=== PATIENT | male | born 1955 | race Caucasian/White ===

== ENCOUNTER 2017-02-10 16:47 | Emergency (ER) | payer OTHER ==
[~2017-02-10] VITALS: Ht 172.7 cm; Wt 100.9 kg
[2017-02-10] MEDS ORDERED: PERCOCET 5/31 TABLET PO (18:51)
[2017-02-10 19:05] VITALS: BP 141/82
== END 2017-02-10 19:08 | disposition home or self-care (01) ==
LOC: EME 16:47
DX: S80.01XA Contusion of right knee, initial encounter (principal); S83.91XA Sprain of unspecified site of right knee, initial encounter; W18.30XA Fall on same level, unspecified, initial encounter; Z87.891 Personal history of nicotine dependence; M25.551 Pain in right hip; J44.9 Chronic obstructive pulmonary disease, unspecified; M25.571 Pain in right ankle and joints of right foot; R60.0 Localized edema
CPT/HCPCS: 73502; 73564; 73610; 93971; 99281; 99284

== ENCOUNTER 2017-03-06 13:50 | Inpatient (IN) | payer OTHER ==
[~2017-03-06] VITALS: Ht 172.7 cm; Wt 91.2 kg
[~2017-03-06 13:50] MED LIST: PERCOCET 5/31 TABLET PO
[2017-03-06] MEDS ORDERED: SPIRIVA RESPIMAT4 G1 IH (14:23)
[2017-03-06] MEDS ORDERED: IBUPROFEN800 MG PO (14:24)
[2017-03-06] MEDS ORDERED: ADVAIR HFA120 INHALA IH (14:24)
[2017-03-06] MEDS ORDERED: LYRICA150 MG PO (14:25)
[2017-03-06] MEDS ORDERED: FLOMAX0.4 MG PO (14:25)
[2017-03-06] MEDS ORDERED: HYDROCHLOROTHIA25 MG PO (14:26)
[2017-03-06] MEDS ORDERED: OMEPRAZOLE20 MG PO (14:26)
[2017-03-06] MEDS ORDERED: LISINOPRIL20 MG PO (14:27)
[2017-03-06] MEDS ORDERED: FLUOXETINE HCL20 MG PO (14:27)
[2017-03-06] MEDS ORDERED: TRAZODONE HCL50 MG PO (14:28)
[2017-03-06] MEDS ORDERED: SIMVASTATIN20 MG PO (14:28)
[2017-03-06] MEDS ORDERED: REMERON15 M2 PO (14:28)
[2017-03-06 15:04] LABS: HEMATOCRIT 39.2 % (38.0-50.0); MCH 27.7 PG (29.0-34.0); MCHC 31.6 G/DL (30.0-36.0); MCV 87.5 FL (86-99); MEAN PLAT.VOLUME 11.1 uM^3 (9.0-12.4); PLATELET COUNT 177 K/uL (156-360); RBC DIS.WIDTH-CV 14.5 % (11.8-14.6); RBC DIS.WIDTH-SD 45.9 % (39-53); RED BLOOD COUNT 4.48 M/uL (4.00-5.50); WHITE BLOOD COUNT 6.4 K/uL (4.1-10.2)
[2017-03-06 15:13] LABS: CHLORIDE 105 mEq/L (99-109); POTASSIUM 4.6 mEq/L (3.7-5.4); SODIUM 141 mEq/L (136-147)
[2017-03-06 15:15] LABS: GLUCOSE 94 mg/dL (70-99)
[2017-03-06 15:17] LABS: ANION GAP 7 MEQ/L (2-14); TOTAL BILIRUBIN 0.3 mg/dL (0.0-1.0)
[2017-03-06 15:19] LABS: ALKALINE PHOSPHATASE 91 IU/L (3-129); GFR ESTIMATE (CALCULATED) > 59 mL/min/
[2017-03-06 15:20] LABS: UREA NITROGEN (BUN) 21 mg/dL (9-23)
[2017-03-06 15:33] LABS: TROP-I INTERPRETATION NEGATIVE; TROPONIN-I < 0.01 ng/mL (0.0-0.30)
[2017-03-06 17:15] LABS: ADD MIUA? NO; BILIRUBIN NEGATIVE; BLOOD NEGATIVE; COLOR STRAW ((YELLOW)); GLUCOSE (STRIP) NEGATIVE; KETONES NEGATIVE; LEUKOCYTES NEGATIVE; NITRITE NEGATIVE; PROTEIN (STRIP) NEGATIVE; SPECIFIC GRAVITY 1.006 (1.000-1.030); UROBILINOGEN 0.2 MG/DL (0.2-1.0)
[2017-03-06] MEDS ORDERED: MORPHINE SULFAT15 M1 PO (17:57)
[2017-03-06] MEDS ORDERED: OXYCODONE HCL15 MG PO (17:58)
[2017-03-06] MEDS ORDERED: FLUTICASONE PRO16 GM BOTH NARES (17:59)
[2017-03-06] MEDS ORDERED: ZANAFLEX2 MG PO (18:00)
[2017-03-06] MEDS ORDERED: MIRALAX255 GM PO (18:01)
[2017-03-06 20:56] VITALS: BP 120/74
[2017-03-06 21:00] VITALS: BP 120/74
[2017-03-06 21:27] LABS: TROP-I INTERPRETATION NEGATIVE; TROPONIN-I 0.02 ng/mL (0.0-0.30)
[2017-03-06 22:59] LABS: D-DIMER ELISA 0.85 mg/L FEU (< 0.57)
[2017-03-07] VITALS (7 sets, daily range): BP systolic 102–130; BP diastolic 55–84
[2017-03-07 03:37] LABS: HEMATOCRIT 41.4 % (38.0-50.0); MCH 27.9 PG (29.0-34.0); MCHC 32.1 G/DL (30.0-36.0); MCV 86.8 FL (86-99); MEAN PLAT.VOLUME 11.3 uM^3 (9.0-12.4); PLATELET COUNT 194 K/uL (156-360); RBC DIS.WIDTH-CV 14.5 % (11.8-14.6); RBC DIS.WIDTH-SD 45.1 % (39-53); RED BLOOD COUNT 4.77 M/uL (4.00-5.50); WHITE BLOOD COUNT 7.7 K/uL (4.1-10.2)
[2017-03-07 03:49] LABS: CHLORIDE 99 mEq/L (99-109); POTASSIUM 3.9 mEq/L (3.7-5.4); SODIUM 141 mEq/L (136-147)
[2017-03-07 03:51] LABS: GLUCOSE 90 mg/dL (70-99)
[2017-03-07 03:52] LABS: ANION GAP 10 MEQ/L (2-14)
[2017-03-07 03:54] LABS: GFR ESTIMATE (CALCULATED) > 59 mL/min/
[2017-03-07 03:55] LABS: UREA NITROGEN (BUN) 19 mg/dL (9-23)
[2017-03-07 03:57] LABS: TROP-I INTERPRETATION NEGATIVE; TROPONIN-I < 0.01 ng/mL (0.0-0.30)
[2017-03-07 22:47] LABS: ADD MIUA? YES; BILIRUBIN NEGATIVE; BLOOD SMALL; COLOR STRAW ((YELLOW)); GLUCOSE (STRIP) NEGATIVE; KETONES NEGATIVE; LEUKOCYTES NEGATIVE; NITRITE NEGATIVE; PROTEIN (STRIP) NEGATIVE; SPECIFIC GRAVITY 1.009 (1.000-1.030); UROBILINOGEN 0.2 MG/DL (0.2-1.0)
[2017-03-07 22:57] LABS: BACTERIA NONE SEEN /HPF; EPITHELIAL CELLS NONE SEEN /HPF; HYALINE CASTS 0-5 /LPF; MUCUS TRACE /LPF; UCUL ADDED? NO; WHITE BLOOD CELLS 0-5 /HPF (0-5)
[2017-03-08 03:03] VITALS: BP 114/72
[2017-03-08 05:52] LABS: HEMATOCRIT 39.3 % (38.0-50.0); MCH 28.4 PG (29.0-34.0); MCHC 32.6 G/DL (30.0-36.0); MCV 87.1 FL (86-99); MEAN PLAT.VOLUME 11.7 uM^3 (9.0-12.4); PLATELET COUNT 191 K/uL (156-360); RBC DIS.WIDTH-CV 14.6 % (11.8-14.6); RBC DIS.WIDTH-SD 46.5 % (39-53); RED BLOOD COUNT 4.51 M/uL (4.00-5.50); WHITE BLOOD COUNT 6.8 K/uL (4.1-10.2)
[2017-03-08 06:14] LABS: ANION GAP 9 MEQ/L (2-14); CHLORIDE 95 MEQ/L (99-109); GFR ESTIMATE (CALCULATED) 50 mL/min/; GLUCOSE 86 mg/dL (70-99); POTASSIUM 3.9 MEQ/L (3.7-5.4); SAMPLE HEMOLYSIS CHECK 0; SAMPLE ICTERIC CHECK 0; SAMPLE LIPEMIA CHECK 0; SODIUM 138 MEQ/L (136-147); UREA NITROGEN (BUN) 26 mg/dL (9-23)
[2017-03-08 07:40] VITALS: BP 99/65
[2017-03-08 12:09] VITALS: BP 103/58
[2017-03-08 16:01] VITALS: BP 103/60
[2017-03-08 20:21] VITALS: BP 123/66
[2017-03-09 00:11] VITALS: BP 114/60
[2017-03-09 05:33] VITALS: BP 129/62
[2017-03-09 05:42] LABS: HEMATOCRIT 38.4 % (38.0-50.0); MCH 28.6 PG (29.0-34.0); MCHC 33.3 G/DL (30.0-36.0); MCV 85.7 FL (86-99); MEAN PLAT.VOLUME 11.9 uM^3 (9.0-12.4); PLATELET COUNT 194 K/uL (156-360); RBC DIS.WIDTH-CV 14.4 % (11.8-14.6); RED BLOOD COUNT 4.48 M/uL (4.00-5.50); WHITE BLOOD COUNT 7.2 K/uL (4.1-10.2)
[2017-03-09 06:25] LABS: ANION GAP 9 MEQ/L (2-14); CHLORIDE 94 MEQ/L (99-109); SAMPLE HEMOLYSIS CHECK 0; SAMPLE ICTERIC CHECK 0; SAMPLE LIPEMIA CHECK 0; SODIUM 132 MEQ/L (136-147); UREA NITROGEN (BUN) 31 mg/dL (9-23)
[2017-03-09 06:27] LABS: GFR ESTIMATE (CALCULATED) > 59 mL/min/; GLUCOSE 135 mg/dL (70-99); POTASSIUM 4.7 MEQ/L (3.7-5.4)
[2017-03-09] MEDS ORDERED: AMOX TR-K CLV1 EAC3 PO (07:09)
[2017-03-09] MEDS ORDERED: VENTOLIN HFA18 GM IH (07:10)
[2017-03-09] MEDS ORDERED: MEDROL DOSEPAK4 MG PO (07:11)
[2017-03-09] MEDS ORDERED: LISINOPRIL10 MG PO (07:11)
[2017-03-09] MEDS ORDERED: ASPIR-LOW81 MG PO (07:15)
[2017-03-09 07:26] VITALS: BP 129/85
== END 2017-03-09 15:55 | disposition home health service (06) | DRG 189 ==
LOC: EME 13:50 → EDOF 19:05 → 4EAST 19:05
PROVIDERS: Hospitalist; Internal Medicine; Nurse Practitioner Family
DX: J96.01 Acute respiratory failure with hypoxia (principal); L03.115 Cellulitis of right lower limb; J44.1 Chronic obstructive pulmonary disease with (acute) exacerbation; N17.9 Acute kidney failure, unspecified; I10 Essential (primary) hypertension; S92.511A Displaced fracture of proximal phalanx of right lesser toe(s), initial encounter for closed fracture; S80.01XA Contusion of right knee, initial encounter; I25.10 Atherosclerotic heart disease of native coronary artery without angina pectoris; F11.20 Opioid dependence, uncomplicated; E66.01 Morbid (severe) obesity due to excess calories; E78.5 Hyperlipidemia, unspecified; N40.0 Benign prostatic hyperplasia without lower urinary tract symptoms; M19.90 Unspecified osteoarthritis, unspecified site; G89.4 Chronic pain syndrome; F12.90 Cannabis use, unspecified, uncomplicated; T50.1X5A Adverse effect of loop [high-ceiling] diuretics, initial encounter; G47.33 Obstructive sleep apnea (adult) (pediatric); W06.XXXA Fall from bed, initial encounter; H10.9 Unspecified conjunctivitis; Z86.73 Personal history of transient ischemic attack (TIA), and cerebral infarction without residual deficits; Z95.5 Presence of coronary angioplasty implant and graft; Z87.891 Personal history of nicotine dependence; Z68.31 Body mass index [BMI] 31.0-31.9, adult; Z80.1 Family history of malignant neoplasm of trachea, bronchus and lung; Z82.49 Family history of ischemic heart disease and other diseases of the circulatory system; Z80.51 Family history of malignant neoplasm of kidney
CPT/HCPCS: 71020; 71275; 73630; 80048; 80053; 81003; 83880; 84443; 84484; 85027; 85379; 93005; 93306; 93970; 94640; 94640 76; 94760; 94799; 99202; 99281; 99285; J0295; J0690; J1644; J1940; J7050; J7512

== ENCOUNTER 2017-08-22 10:30 | Emergency (ER) | payer OTHER ==
[~2017-08-22] VITALS: Ht 172.7 cm; Wt 92.0 kg
[~2017-08-22 10:30] MED LIST changes: +ADVAIR HFA120 INHAL1 IH; +ALBUTEROL2.5 MG/3 M IH; +AMBIEN10 MG PO; +AMOX TR-K CLV1 EAC3 PO; +ASPIR-LOW81 MG PO; +ASPIRIN81 M2 PO; +FLOMAX0.4 MG PO; +FLUOXETINE HCL20 MG PO; +FLUOXETINE HCL40 MG PO; +FLUTICASONE PRO16 GM BOTH NARES; +HYDROCHLOROTHIA25 MG PO; +IBUPROFEN800 MG PO; +LISINOPRIL10 MG PO; +LISINOPRIL20 MG PO; +LYRICA300 MG PO; +MEDROL DOSEPAK4 MG PO; +MIRALAX255 GM PO; +MONTELUKAST SOD10 MG PO; +MORPHINE SULFAT15 M1 PO; +OMEPRAZOLE20 MG PO; +OXYCODONE HCL15 MG PO; +PREDNISONE5 MG PO; +REMERON15 M2 PO; +SIMVASTATIN20 MG PO; +SPIRIVA1 INHALATI IH; +TRAZODONE HCL50 MG PO; +VENTOLIN HFA18 GM IH; +ZANAFLEX4 MG PO
[2017-08-22 11:20] LABS: HEMATOCRIT 39.1 % (38.0-50.0); MCH 29.9 PG (29.0-34.0); MCHC 34.5 G/DL (30.0-36.0); MCV 86.7 FL (86-99); MEAN PLAT.VOLUME 10.7 uM^3 (9.0-12.4); PLATELET COUNT 254 K/uL (156-360); RBC DIS.WIDTH-CV 14.8 % (11.8-14.6); RBC DIS.WIDTH-SD 46.5 % (39-53); RED BLOOD COUNT 4.51 M/uL (4.00-5.50); WHITE BLOOD COUNT 9.8 K/uL (4.1-10.2)
[2017-08-22 11:30] LABS: CHLORIDE 110 mEq/L (99-109); POTASSIUM 3.6 mEq/L (3.7-5.4); SODIUM 140 mEq/L (136-147)
[2017-08-22 11:32] LABS: GLUCOSE 113 mg/dL (70-99)
[2017-08-22 11:33] LABS: ANION GAP 11 MEQ/L (2-14)
[2017-08-22 11:35] LABS: GFR ESTIMATE (CALCULATED) > 59 mL/min/
[2017-08-22 11:36] LABS: UREA NITROGEN (BUN) 27 mg/dL (9-23)
[2017-08-22 12:51] LABS: TROP-I INTERPRETATION NEGATIVE; TROPONIN-I < 0.01 ng/mL (0.0-0.30)
[2017-08-22 14:36] LABS: ADD MIUA? NO; BILIRUBIN NEGATIVE; BLOOD NEGATIVE; COLOR YELLOW ((YELLOW)); GLUCOSE (STRIP) NEGATIVE; KETONES 20; LEUKOCYTES NEGATIVE; NITRITE NEGATIVE; PROTEIN (STRIP) 30; UCUL ADDED? NO
[2017-08-22] MEDS ORDERED: PREDNISONE20 MG PO (15:20)
[2017-08-22] MEDS ORDERED: IVERMECTIN3 MG PO (15:26)
[2017-08-22 15:53] VITALS: BP 173/79
== END 2017-08-22 15:55 | disposition home or self-care (01) ==
LOC: EME 10:30
PROVIDERS: Physician Assistant
DX: J44.1 Chronic obstructive pulmonary disease with (acute) exacerbation (principal); S80.862A Insect bite (nonvenomous), left lower leg, initial encounter; S80.861A Insect bite (nonvenomous), right lower leg, initial encounter; W57.XXXA Bitten or stung by nonvenomous insect and other nonvenomous arthropods, initial encounter; R10.30 Lower abdominal pain, unspecified; R11.2 Nausea with vomiting, unspecified; R14.0 Abdominal distension (gaseous); E87.6 Hypokalemia; I10 Essential (primary) hypertension; E78.5 Hyperlipidemia, unspecified; Z79.52 Long term (current) use of systemic steroids; Z79.82 Long term (current) use of aspirin; Z79.891 Long term (current) use of opiate analgesic; Z87.891 Personal history of nicotine dependence
CPT/HCPCS: 71020; 74177; 80048; 81003; 83880; 84484; 85027; 93005; 94640; 99281; 99283; J2930; J7030; J7120

== ENCOUNTER 2017-10-18 13:49 | Inpatient (IN) | payer OTHER ==
[~2017-10-18] VITALS: Ht 172.7 cm; Wt 88.5 kg
[~2017-10-18 13:49] MED LIST changes: +IVERMECTIN3 MG PO; +LISINOPRIL-HCT1 EACH PO; +PREDNISONE20 MG PO
[2017-10-18 14:43] LABS: BASOPHIL (%) 0.5 % (0-1); EOSINOPHIL (%) 4.2 % (0-5); EOSINOPHIL COUNT 0.3 K/uL (0-0.3); HEMATOCRIT 32.1 % (38.0-50.0); HEMOGLOBIN 10.3 G/DL (12.5-16.6); LYMPHOCYTE (%) 5.8 % (15-42); LYMPHOCYTE COUNT 0.5 K/uL (1.0-2.8); MCH 28.8 PG (29.0-34.0); MCHC 32.1 G/DL (30.0-36.0); MCV 89.7 FL (86-99); MONOCYTE (%) 7.3 % (3-12); MONOCYTE COUNT 0.6 K/uL (0-0.8); NEUTROPHIL (%) 81.2 % (45-76); NEUTROPHIL COUNT 6.5 K/uL (1.8-6.4); PLATELET COUNT 229 K/uL (156-360); RBC DIS.WIDTH-SD 49.1 % (39-53); RED BLOOD COUNT 3.58 M/uL (4.00-5.50)
[2017-10-18 14:55] LABS: CHLORIDE 108 mEq/L (99-109); POTASSIUM 5.1 mEq/L (3.7-5.4); SODIUM 132 mEq/L (136-147)
[2017-10-18 14:57] LABS: GLUCOSE 91 mg/dL (70-99)
[2017-10-18 15:01] LABS: CREATININE 2.3 mg/dL (0.6-1.3); GFR ESTIMATE (CALCULATED) 31 mL/min/ (58.99-99999)
[2017-10-18 15:02] LABS: UREA NITROGEN (BUN) 33 mg/dL (9-23)
[2017-10-18 15:04] LABS: TROP-I INTERPRETATION NEGATIVE; TROPONIN-I 0.03 ng/mL (0.0-0.30)
[2017-10-18] MEDS ORDERED: PROAIR HFA8.5 GM IH (17:14)
[2017-10-18 19:32] LABS: APPEARANCE CLEAR ((CLEAR)); BILIRUBIN NEGATIVE; BLOOD NEGATIVE; COLOR YELLOW ((YELLOW)); GLUCOSE (STRIP) NEGATIVE; KETONES NEGATIVE; LEUKOCYTES NEGATIVE; NITRITE NEGATIVE; PROTEIN (STRIP) 30; SPECIFIC GRAVITY 1.012 (1.000-1.030); UCUL ADDED? NO; UROBILINOGEN 0.2 MG/DL (0.2-1.0)
[2017-10-19 05:34] LABS: BASOPHIL (%) 0.5 % (0-1); EOSINOPHIL (%) 6.6 % (0-5); EOSINOPHIL COUNT 0.5 K/uL (0-0.3); HEMATOCRIT 36.4 % (38.0-50.0); HEMOGLOBIN 11.5 G/DL (12.5-16.6); IMMATURE GRANULOCYTE (%) 1.2 % (0.0-0.7); LYMPHOCYTE (%) 9.2 % (15-42); LYMPHOCYTE COUNT 0.7 K/uL (1.0-2.8); MCH 28.9 PG (29.0-34.0); MCHC 31.6 G/DL (30.0-36.0); MCV 91.5 FL (86-99); MONOCYTE COUNT 0.6 K/uL (0-0.8); NEUTROPHIL (%) 74.5 % (45-76); NEUTROPHIL COUNT 5.6 K/uL (1.8-6.4); PLATELET COUNT 212 K/uL (156-360); RBC DIS.WIDTH-CV 14.9 % (11.8-14.6); RED BLOOD COUNT 3.98 M/uL (4.00-5.50); WHITE BLOOD COUNT 7.5 K/uL (4.1-10.2)
[2017-10-19 06:20] LABS: ALBUMIN 3.8 G/DL (3.2-4.8); ALKALINE PHOSPHATASE 105 IU/L (3-129); ALT (GPT) 10 IU/L (3-49); AST (GOT) 13 IU/L (2-34); CHLORIDE 110 MEQ/L (99-109); GLUCOSE 66 mg/dL (70-99); POTASSIUM 4.9 MEQ/L (3.7-5.4); TOTAL BILIRUBIN 0.3 MG/DL (0.0-1.0); TOTAL PROTEIN 5.9 G/DL (6.4-8.3); UREA NITROGEN (BUN) 26 mg/dL (9-23)
[2017-10-19 06:34] LABS: CREATININE 1.5 MG/DL (0.6-1.3); GFR ESTIMATE (CALCULATED) 50 mL/min/ (58.99-99999); SODIUM 139 MEQ/L (136-147)
[2017-10-19 07:45] VITALS: BP 163/82
[2017-10-19 11:00] VITALS: BP 133/85
[2017-10-19 14:55] VITALS: BP 118/79
[2017-10-19 20:47] VITALS: BP 140/82
[2017-10-20] VITALS (7 sets, daily range): BP systolic 123–141; BP diastolic 80–86
[2017-10-20 06:31] LABS: ALBUMIN 4.1 G/DL (3.2-4.8); CHLORIDE 104 MEQ/L (99-109); CREATININE 1.2 MG/DL (0.6-1.3); GFR ESTIMATE (CALCULATED) > 59 mL/min/ (58.99-99999); SODIUM 136 MEQ/L (136-147); UREA NITROGEN (BUN) 20 mg/dL (9-23); URIC ACID 5.4 mg/dL (3.1-9.2)
[2017-10-20 06:32] LABS: GLUCOSE 83 mg/dL (70-99); POTASSIUM 3.7 MEQ/L (3.7-5.4)
[2017-10-20 11:11] LABS: APPEARANCE CLEAR ((CLEAR)); BILIRUBIN NEGATIVE; BLOOD NEGATIVE; COLOR YELLOW ((YELLOW)); GLUCOSE (STRIP) NEGATIVE; KETONES NEGATIVE; LEUKOCYTES NEGATIVE; NITRITE NEGATIVE; PROTEIN (STRIP) NEGATIVE; SPECIFIC GRAVITY 1.006 (1.000-1.030); UCUL ADDED? NO; UROBILINOGEN 0.2 MG/DL (0.2-1.0)
[2017-10-21 03:35] VITALS: BP 137/77
[2017-10-21 05:55] LABS: BASOPHIL (%) 0.5 % (0-1); EOSINOPHIL (%) 4.7 % (0-5); EOSINOPHIL COUNT 0.4 K/uL (0-0.3); HEMOGLOBIN 12.6 G/DL (12.5-16.6); IMMATURE GRANULOCYTE (%) 0.9 % (0.0-0.7); LYMPHOCYTE (%) 8.2 % (15-42); LYMPHOCYTE COUNT 0.7 K/uL (1.0-2.8); MCH 27.9 PG (29.0-34.0); MCHC 32.3 G/DL (30.0-36.0); MONOCYTE (%) 9.6 % (3-12); MONOCYTE COUNT 0.8 K/uL (0-0.8); NEUTROPHIL (%) 76.1 % (45-76); NEUTROPHIL COUNT 6.5 K/uL (1.8-6.4); PLATELET COUNT 254 K/uL (156-360); RBC DIS.WIDTH-CV 14.4 % (11.8-14.6); RBC DIS.WIDTH-SD 45.1 % (39-53); RED BLOOD COUNT 4.51 M/uL (4.00-5.50); WHITE BLOOD COUNT 8.6 K/uL (4.1-10.2)
[2017-10-21 06:09] LABS: CHLORIDE 97 MEQ/L (99-109); GFR ESTIMATE (CALCULATED) > 59 mL/min/ (58.99-99999); GLUCOSE 94 mg/dL (70-99); POTASSIUM 3.9 MEQ/L (3.7-5.4); SODIUM 134 MEQ/L (136-147); UREA NITROGEN (BUN) 21 mg/dL (9-23)
[2017-10-21 06:23] LABS: MCV 86.5 FL (86-99)
[2017-10-21 08:22] VITALS: BP 140/88
[2017-10-21 12:12] VITALS: BP 118/74
[2017-10-21 16:00] VITALS: BP 125/82
[2017-10-21 19:39] VITALS: BP 130/80
[2017-10-21 23:30] VITALS: BP 127/78
[2017-10-22 04:18] VITALS: BP 131/76
[2017-10-22 07:30] VITALS: BP 138/82
[2017-10-22 11:47] VITALS: BP 123/76
[2017-10-22] MEDS ORDERED: CLONAZEPAM0.5 MG PO (12:32)
== END 2017-10-22 13:52 | disposition home or self-care (01) | DRG 683 ==
LOC: EME 13:49 → 4EAST 17:12 → EDOF 17:12 → ENRESERV 17:41 → 4EAST 21:33
PROVIDERS: Emergency Medicine; Internal Medicine; Internal Medicine Nephrology
DX: N17.9 Acute kidney failure, unspecified (principal); T39.395A Adverse effect of other nonsteroidal anti-inflammatory drugs [NSAID], initial encounter; E86.0 Dehydration; E87.1 Hypo-osmolality and hyponatremia; I12.9 Hypertensive chronic kidney disease with stage 1 through stage 4 chronic kidney disease, or unspecified chronic kidney disease; N18.3 Chronic kidney disease, stage 3 (moderate); G89.4 Chronic pain syndrome; J84.112 Idiopathic pulmonary fibrosis; J44.9 Chronic obstructive pulmonary disease, unspecified; I25.10 Atherosclerotic heart disease of native coronary artery without angina pectoris; D64.9 Anemia, unspecified; M54.2 Cervicalgia; E78.5 Hyperlipidemia, unspecified; G47.30 Sleep apnea, unspecified; I95.9 Hypotension, unspecified; R07.9 Chest pain, unspecified; R60.9 Edema, unspecified; N40.0 Benign prostatic hyperplasia without lower urinary tract symptoms; K21.9 Gastro-esophageal reflux disease without esophagitis; F32.9 Major depressive disorder, single episode, unspecified; F41.9 Anxiety disorder, unspecified; E66.9 Obesity, unspecified; M19.90 Unspecified osteoarthritis, unspecified site; F10.11 Alcohol abuse, in remission; Z99.81 Dependence on supplemental oxygen; Z87.891 Personal history of nicotine dependence; Z95.5 Presence of coronary angioplasty implant and graft
CPT/HCPCS: 70450; 71045; 80047; 80048; 80053; 80069; 81003; 83605; 83880; 84484; 84550; 85025; 85379; 85610; 93005; 94010; 94640; 94640 76; 94760; 94799; 99202; 99281; 99285; J1940; J7030; J7512

== ENCOUNTER 2017-12-20 23:30 | Emergency (ER) | payer OTHER ==
[~2017-12-20 23:30] MED LIST changes: +CLONAZEPAM0.5 MG PO; +PROAIR HFA8.5 GM IH
[2017-12-20 23:50] LABS: HEMATOCRIT 43.5 % (38.0-50.0); HEMOGLOBIN 13.1 G/DL (12.5-16.6); MCH 26.4 PG (29.0-34.0); MCHC 30.1 G/DL (30.0-36.0); MCV 87.5 FL (86-99); NRBC (%) 1.1 /100 WBC (0-0); PLATELET COUNT 247 K/uL (156-360); RBC DIS.WIDTH-CV 15.6 % (11.8-14.6); RBC DIS.WIDTH-SD 49.8 % (39-53); RED BLOOD COUNT 4.97 M/uL (4.00-5.50); WHITE BLOOD COUNT 14.3 K/uL (4.1-10.2)
[2017-12-20 23:59] LABS: INTER. NORMALIZED RATIO 1.1
[2017-12-21 00:02] LABS: PTT 41.6 SEC (25-37)
[2017-12-21 00:02] LABS: AMYLASE 78 IU/L (1-118); CHLORIDE 102 mEq/L (99-109); SODIUM 134 mEq/L (136-147)
[2017-12-21 00:04] LABS: GLUCOSE 187 mg/dL (70-99)
[2017-12-21 00:07] LABS: SERUM ETHYL ALCOHOL 89 mg/dL
[2017-12-21 00:08] LABS: CREATININE 2.4 mg/dL (0.6-1.3); GFR ESTIMATE (CALCULATED) 29 mL/min/ (58.99-99999)
[2017-12-21 00:09] LABS: UREA NITROGEN (BUN) 56 mg/dL (9-23)
[2017-12-21 00:11] LABS: LIPASE 19 U/L (1.0-51.0); TROP-I INTERPRETATION NEGATIVE; TROPONIN-I 0.04 ng/mL (0.0-0.30)
[2017-12-21 00:35] LABS: ABS NEUTROPHIL COUNT 9.9; ANISOCYTOSIS 1+; ATYPICAL LYMPHOCYTE 10.5 %; EOSINOPHIL ABS CT 0.2; EOSINOPHILS 1.7 % (0-5.0); HYPOCHROMASIA 1+; LYMPHOCYTES 5.3 % (15.0-45.0); MACROCYTES 1+; MONOCYTES 11.4 % (0-9.0); MYELOCYTES 1.8 %; PLAT.SUFFICIENCY ADEQUATE; POIKILOCYTOSIS 2+; SEG.NEUTROPHILS 69.3 % (46.0-76.0)
[2017-12-21 01:33] LABS: APPEARANCE SL.HAZY ((CLEAR)); BILIRUBIN NEGATIVE; BLOOD NEGATIVE; COLOR YELLOW ((YELLOW)); GLUCOSE (STRIP) NEGATIVE; KETONES NEGATIVE; LEUKOCYTES NEGATIVE; NITRITE NEGATIVE; PROTEIN (STRIP) 30; SPECIFIC GRAVITY 1.012 (1.000-1.030); UROBILINOGEN 0.2 MG/DL (0.2-1.0)
[2017-12-21 01:46] LABS: AMPHETAMINE NEGATIVE (500 ng/mL); BARBITURATES NEGATIVE (200 ng/mL); BENZODIAZEPINES PRESUMPTIVE POSITIVE (150 ng/mL); BUPRENORPHINE NEGATIVE (10 ng/mL); COCAINE NEGATIVE (150 ng/mL); METHADONE NEGATIVE (200 ng/mL); METHAMPHETAMINE NEGATIVE (500 ng/mL); OPIATES (MORPHINE) NEGATIVE (100 ng/mL); OXYCODONE PRESUMPTIVE POSITIVE (100 ng/mL); PHENCYCLIDINE NEGATIVE (25 ng/mL); PROPOXYPHENE NEGATIVE (300 ng/mL); THC CANNABINOIDS NEGATIVE (50 ng/mL); TRICYCLIC ANTIDEPRESSANTS NEGATIVE (300 ng/mL)
[2017-12-21 01:50] LABS: BACTERIA 1+ /HPF; EPITHELIAL CELLS NONE SEEN /HPF; MUCUS TRACE /LPF; RED BLOOD CELLS 15-20 /HPF (0-5); UCUL ADDED? NO; WHITE BLOOD CELLS 0-5 /HPF (0-5)
[2017-12-21 02:21] LABS: BENZODIAZEPINES, URINE SCREEN POSITIVE (200 ng/mL)
== END 2017-12-21 06:16 ==
LOC: EME → EDBD 23:30 → EME 12-21 06:16
PROVIDERS: Emergency Medicine
DX: I46.9 Cardiac arrest, cause unspecified (principal); I44.0 Atrioventricular block, first degree; I45.2 Bifascicular block; I25.10 Atherosclerotic heart disease of native coronary artery without angina pectoris; Z87.898 Personal history of other specified conditions; I12.9 Hypertensive chronic kidney disease with stage 1 through stage 4 chronic kidney disease, or unspecified chronic kidney disease; N18.9 Chronic kidney disease, unspecified; J44.9 Chronic obstructive pulmonary disease, unspecified; K21.9 Gastro-esophageal reflux disease without esophagitis; E78.5 Hyperlipidemia, unspecified; N40.0 Benign prostatic hyperplasia without lower urinary tract symptoms; E66.9 Obesity, unspecified; M19.90 Unspecified osteoarthritis, unspecified site; F32.9 Major depressive disorder, single episode, unspecified; F41.9 Anxiety disorder, unspecified; Z79.891 Long term (current) use of opiate analgesic; Z79.82 Long term (current) use of aspirin; Z79.52 Long term (current) use of systemic steroids; Z79.51 Long term (current) use of inhaled steroids; Z87.891 Personal history of nicotine dependence; Z80.9 Family history of malignant neoplasm, unspecified
CPT/HCPCS: 71045; 80048; 81003; 82150; 83605; 83690; 84484; 84999; 85025; 85610; 85730; 86850; 86900; 86901; 87040; 93005; 94002; 99281; 99285; C1751; G0480; J0171; J0461; J1265; J2310